=== PATIENT | female | born 1990 | race Caucasian/White ===

== ENCOUNTER 2017-10-28 14:58 | Emergency (ER) | payer MEDICARE, OTHER ==
[~2017-10-28] VITALS: Ht 165.1 cm; Wt 92.1 kg
[~2017-10-28 14:58] MED LIST: ALBU90OI61 INH; ALPR.5; ARIP10 PO; ARIP15 PO; ARIP20 PO; AZIT250 PO; BENZ100A PO; BUPR150T2; BUSP15 PO; CIPRO500 MG PO; CLON.1; CLON.1 PO; CLON.2 PO; CLON1 PO; CLON2 PO; CYCL10 PO; Cipro500 MG PO; Colace100 MG PO; DIVA125EC; ESTNORT PO; HALO5 PO; HYDPAM25; Hair, Skin & N1 EACH PO; IBUP600 PO; IBUP800 PO; LOXA10 PO; NAPR500 PO; OLAN10 PO; OLAN2.5 PO; OLAN20 MM; OLAN20 PO; ONDA4 PO; OXCA150; OXCA150 PO; OXCA300 PO; Oxcarbazepine600 MG PO; PROM25 PO; Percocet 5-3251 EACH PO; QUET100; QUET300 PO; RISP1 PO; SERT100 PO; SERT25; SERT25 PO; SERT50 PO; SULTRISS PO; Trileptal600 MG PO; VICODIN 5-3001 EACH PO; Vibramycin100 MG PO; ZIPR40 PO; Zofran Odt4 MG SL; Zyprexa10 MG PO; [UNRECOGNIZED DRUG - REMARK]; [UNRECOGNIZED DRUG - REMARK]; [UNRECOGNIZED DRUG - REMARK]
[2017-10-28] MEDS ORDERED: Haloperidol10 MG PO (15:28)
[2017-10-28] MEDS ORDERED: OLAN20 MM (15:29)
[2017-10-28 15:49] LABS: BASOPHILS ABSOLUTE AUTO 0.03 K/mm3 (0.00-0.23); BASOPHILS PERCENT AUTO 0 % (0-2); EOSINOPHILS PERCENT AUTO 0 % (0-6); Hematocrit 38.9 % (33.0-51.0); IMMATURE GRAN ABSOLUTE AUTO 0.02 K/mm3 (0.00-0.10); IMMATURE GRAN PERCENT AUTO 0 % (0-1); LYMPHOCYTES ABSOLUTE AUTO 1.15 K/mm3 (0.84-5.20); LYMPHOCYTES PERCENT AUTO 16 % (21-46); MONOCYTES ABSOLUTE AUTO 0.41 K/mm3 (0.16-1.47); MONOCYTES PERCENT AUTO 6 % (4-13); Mean Corpuscular HGB 29.3 pg (26.0-34.0); Mean Corpuscular Volume 81 fL (80-100); Mean Platelet Volume 10.4 fL (9.1-12.4); NEUTROPHILS ABSOLUTE AUTO 5.82 K/mm3 (1.96-9.15); NEUTROPHILS PERCENT AUTO 78 % (41-73); Platelet Count 199 K/mm3 (150-400); RDW Coefficient Variation 11.9 % (11.7-14.2); RDW Standard Deviation 35.1 fL (35.1-46.3); Red Blood Cell Count 4.78 M/mm3 (3.80-5.20); White Blood Cell Count 7.43 K/mm3 (4.00-11.30)
[2017-10-28 16:06] LABS: Alanine Aminotransfer (ALT/SGP 30 U/L (12-78); Albumin, Blood 3.6 g/dL (3.4-5.0); Albumin/Globulin Ratio 0.9 (0.8-1.8); Alk Phos 87 U/L (50-136); Anion Gap 10 mmol/L (6-16); Aspartate Aminotrans (AST/SGOT 23 U/L (12-37); Bilirubin, Total 0.2 mg/dL (0.1-1.0); Blood Urea Nitrogen 7 mg/dL (8-24); Bun/Creatinine Ratio 11.8 (12.0-20.0); CO2, Blood 23 mmol/L (21-32); Calcium, Blood 8.8 mg/dL (8.5-10.1); Chloride, Blood 104 mmol/L (98-108); Creatinine, Blood 0.59 mg/dL (0.40-1.00); Ethanol (Alcohol), Blood, Med <3 mg/dL; Globulin, Blood 3.8 g/dL (2.2-4.0); Glomerular Filtration Rate >60 (60-); Glucose, Blood 106 mg/dL (70-99); Potassium, Blood 3.7 mmol/L (3.5-5.5); Salicylate <1.7 mg/dL (2.8-20.0); Sodium, Blood 137 mmol/L (136-145); Total Protein, Blood 7.4 g/dL (6.4-8.2)
[2017-10-28 16:17] LABS: Acetaminophen, Random <2.0 ug/mL (10.0-30.0)
[2017-10-28 16:28] LABS: Source, Urine Voided
[2017-10-28 16:34] LABS: Appearance, Urine Clear (Clear); Bilirubin, Urine Neg (Neg); Blood, Urine 4+ (Neg); Color, Urine Yellow (P-Yellow); Glucose Qualitative, Urine Neg (Neg); Ketones, Urine Neg (Neg); Leukocyte Esterase, Urine 3+ (Neg); Nitrite, Urine Neg (Neg); Protein, Urine 1+ (Neg); Urobilinogen, Urine NORM (Normal)
[2017-10-28 16:52] LABS: Bacteria Many /hpf; Squamous Epithelial Cells Many /hpf (Few); White Blood Cells, Urine 25-50 /hpf (0-5)
[2017-10-28 17:32] LABS: U Amphetamine Screen Not Detected; U Barbituate Screen Not Detected; U Benzodiazapine Screen Not Detected; U Buprenorphine Screen Not Detected; U Cannabinoids Screen Not Detected; U Cocaine Screen Not Detected; U Methadone Screen Not Detected; U Methamphetamine Screen Not Detected; U Opiates Screen Not Detected; U Oxycodone Screen Not Detected; U Phencyclidine Screen Not Detected; U Propoxyphene Screen Not Detected
== END 2017-10-28 19:57 | disposition home or self-care (01) ==
LOC: ER 14:58
PROVIDERS: Emergency Medicine
DX: F25.9 Schizoaffective disorder, unspecified (principal); Z87.891 Personal history of nicotine dependence; F31.9 Bipolar disorder, unspecified; Z79.899 Other long term (current) drug therapy
CPT/HCPCS: 36415; 80053; 81001; 81025; 84443; 85025; 87086; 99284; G0480

== ENCOUNTER → 2017-11-25 | Outpatient (CLI) | payer MEDICARE, OTHER ==
[~2017-11-25] MED LIST changes: +Haloperidol10 MG PO
[2017-11-26 11:29] LABS: Candida species (DNA Probe) Negative (NEGATIVE); G. vaginalis (DNA Probe) Negative (NEGATIVE); T. vaginalis (DNA Probe) Negative (NEGATIVE)
[2017-11-29 12:29] LABS: HPV Genotype 16 Not Detected (NOTDET); HPV Genotype 18 Not Detected (NOTDET)
[2017-12-02 09:53] LABS: HPV High Risk Other Not Detected (NOTDET)
== END ==
LOC: LAB SHORT 10:00
PROVIDERS: Nurse Practitioner Family
DX: N89.8 Other specified noninflammatory disorders of vagina (principal); N92.6 Irregular menstruation, unspecified; Z72.51 High risk heterosexual behavior; N73.8 Other specified female pelvic inflammatory diseases; Z86.19 Personal history of other infectious and parasitic diseases
CPT/HCPCS: 87177; 87209; 87480; 87491; 87510; 87591; 87624; 87660; G0123

== ENCOUNTER → 2018-07-07 | Outpatient (CLI) | payer MEDICARE, OTHER ==
[2018-07-08 10:11] LABS: Candida species (DNA Probe) Negative (NEGATIVE); G. vaginalis (DNA Probe) Negative (NEGATIVE); T. vaginalis (DNA Probe) Negative (NEGATIVE)
== END ==
LOC: LAB SHORT 12:12 → LAB 12:12
PROVIDERS: Obstetrics & Gynecology
DX: N76.0 Acute vaginitis (principal)
CPT/HCPCS: 87480; 87510; 87660

== ENCOUNTER → 2019-07-18 | Outpatient (CLI) | payer MEDICARE, OTHER ==
[2019-07-18 13:17] LABS: BASOPHILS ABSOLUTE AUTO 0.05 K/mm3 (0.00-0.23); BASOPHILS PERCENT AUTO 1 % (0-2); EOSINOPHILS PERCENT AUTO 0 % (0-6); Hemoglobin 15.7 g/dL (11.5-16.0); IMMATURE GRAN ABSOLUTE AUTO 0.02 K/mm3 (0.00-0.10); IMMATURE GRAN PERCENT AUTO 0 % (0-1); LYMPHOCYTES ABSOLUTE AUTO 2.01 K/mm3 (0.84-5.20); LYMPHOCYTES PERCENT AUTO 30 % (21-46); MONOCYTES ABSOLUTE AUTO 0.49 K/mm3 (0.16-1.47); MONOCYTES PERCENT AUTO 7 % (4-13); Mean Corpuscular HGB 28.8 pg (26.0-34.0); Mean Corpuscular HGB Conc 34.1 g/dL (31.5-36.5); Mean Corpuscular Volume 84 fL (80-100); Mean Platelet Volume 11.2 fL (9.1-12.4); NEUTROPHILS ABSOLUTE AUTO 4.14 K/mm3 (1.96-9.15); NEUTROPHILS PERCENT AUTO 62 % (41-73); Platelet Count 211 K/mm3 (150-400); RDW Coefficient Variation 12.6 % (11.7-14.2); RDW Standard Deviation 38.2 fL (35.1-46.3); Red Blood Cell Count 5.46 M/mm3 (3.80-5.20); White Blood Cell Count 6.71 K/mm3 (4.00-11.30)
[2019-07-18 13:31] LABS: Albumin, Blood 4.2 g/dL (3.4-5.0); Albumin/Globulin Ratio 1.1 (0.8-1.8); Bilirubin, Total 0.3 mg/dL (0.1-1.0); Calcium, Blood 9.7 mg/dL (8.5-10.1); Creatinine, Blood 1.11 mg/dL (0.40-1.00); Potassium, Blood 4.1 mmol/L (3.5-5.5); Thyroid Stimulating Hormone 1.63 uIU/mL (0.360-4.800); Total Protein, Blood 8.2 g/dL (6.4-8.2)
== END | disposition home or self-care (01) ==
LOC: LAB SHORT 13:07 → LAB EV 13:07
PROVIDERS: Physician Assistant Medical
DX: N64.3 Galactorrhea not associated with childbirth (principal); R06.09 Other forms of dyspnea
CPT/HCPCS: 80053; 84146; 84443; 85025

== ENCOUNTER → 2019-08-21 | Outpatient (CLI) | payer MEDICARE, OTHER ==
[2019-08-21 13:43] LABS: BASOPHILS ABSOLUTE AUTO 0.04 K/mm3 (0.00-0.23); BASOPHILS PERCENT AUTO 1 % (0-2); EOSINOPHILS ABSOLUTE AUTO 0.06 K/mm3 (0.00-0.68); EOSINOPHILS PERCENT AUTO 1 % (0-6); Hematocrit 42.6 % (33.0-51.0); Hemoglobin 14.7 g/dL (11.5-16.0); IMMATURE GRAN ABSOLUTE AUTO 0.01 K/mm3 (0.00-0.10); IMMATURE GRAN PERCENT AUTO 0 % (0-1); LYMPHOCYTES PERCENT AUTO 39 % (21-46); MONOCYTES PERCENT AUTO 8 % (4-13); Mean Corpuscular HGB 29.1 pg (26.0-34.0); Mean Corpuscular HGB Conc 34.5 g/dL (31.5-36.5); Mean Corpuscular Volume 84 fL (80-100); Mean Platelet Volume 11.4 fL (9.1-12.4); NEUTROPHILS ABSOLUTE AUTO 2.69 K/mm3 (1.96-9.15); NEUTROPHILS PERCENT AUTO 52 % (41-73); Platelet Count 186 K/mm3 (150-400); RDW Coefficient Variation 12.1 % (11.7-14.2); RDW Standard Deviation 36.6 fL (35.1-46.3); Red Blood Cell Count 5.05 M/mm3 (3.80-5.20)
[2019-08-21 13:49] LABS: Alanine Aminotransfer (ALT/SGP 39 U/L (12-78); Alk Phos 107 U/L (40-126); Anion Gap 10 mmol/L (6-16); Aspartate Aminotrans (AST/SGOT 36 U/L (12-37); Bilirubin, Total 0.2 mg/dL (0.1-1.0); Blood Urea Nitrogen 8 mg/dL (8-24); Bun/Creatinine Ratio 7.6 (12.0-20.0); CO2, Blood 28 mmol/L (21-32); Calcium, Blood 8.9 mg/dL (8.5-10.1); Chloride, Blood 105 mmol/L (98-108); Creatinine, Blood 1.05 mg/dL (0.40-1.00); Globulin, Blood 3.9 g/dL (2.2-4.0); Glomerular Filtration Rate >60 (60-); Glucose, Blood 98 mg/dL (70-99); Potassium, Blood 3.7 mmol/L (3.5-5.5); Sodium, Blood 143 mmol/L (136-145); Total Protein, Blood 7.9 g/dL (6.4-8.2)
[2019-08-21 13:52] LABS: Troponin I <0.017 ng/mL (0.000-0.040)
== END | disposition home or self-care (01) ==
LOC: LAB EV 13:33 → LAB SHORT 13:33
PROVIDERS: Physician Assistant
DX: R07.89 Other chest pain (principal)
CPT/HCPCS: 80053; 84484; 85025

== ENCOUNTER 2019-08-25 17:03 | Emergency (ER) | payer MEDICARE, OTHER ==
[~2019-08-25] VITALS: Ht 167.6 cm; Wt 98.9 kg
[2019-08-25] MEDS ORDERED: DICL75ER PO (19:55)
== END 2019-08-25 20:01 | disposition home or self-care (01) ==
LOC: ER 17:03
DX: M94.0 Chondrocostal junction syndrome [Tietze] (principal); Z88.8 Allergy status to other drugs, medicaments and biological substances; Z79.899 Other long term (current) drug therapy; F31.9 Bipolar disorder, unspecified; F20.9 Schizophrenia, unspecified; Z87.891 Personal history of nicotine dependence
CPT/HCPCS: 71046; 99283-25

== ENCOUNTER → 2020-01-05 | Outpatient (CLI) | payer MEDICARE, OTHER ==
[~2020-01-05] MED LIST changes: +DICL75ER PO
[2020-01-06 09:43] LABS: Candida species (DNA Probe) Negative (NEGATIVE); G. vaginalis (DNA Probe) Positive (NEGATIVE); T. vaginalis (DNA Probe) Negative (NEGATIVE)
== END ==
LOC: LAB 11:00 → LAB SHORT 11:00
PROVIDERS: Obstetrics & Gynecology
DX: R10.2 Pelvic and perineal pain (principal)
CPT/HCPCS: 87480; 87510; 87660

== ENCOUNTER → 2020-07-17 | Outpatient (CLI) | payer MEDICARE, OTHER | LOC: LAB SHORT 18:09 → LAB 18:09 | DX: R30.0 Dysuria (principal) | CPT/HCPCS: 87086 ==

== ENCOUNTER → 2020-11-22 | Outpatient (CLI) | payer MEDICARE, OTHER ==
[2020-11-23 10:09] LABS: Candida species (DNA Probe) Negative (NEGATIVE); G. vaginalis (DNA Probe) Positive (NEGATIVE); T. vaginalis (DNA Probe) Negative (NEGATIVE)
== END | disposition home or self-care (01) ==
LOC: LAB 14:09 → LAB SHORT 14:09
PROVIDERS: Obstetrics & Gynecology
DX: Z01.419 Encounter for gynecological examination (general) (routine) without abnormal findings (principal); N76.0 Acute vaginitis
CPT/HCPCS: 87480; 87510; 87660; G0123

== ENCOUNTER → 2021-02-22 | Outpatient (CLI) | payer OTHER ==
[2021-02-23 09:21] LABS: Candida species (DNA Probe) Negative (NEGATIVE); G. vaginalis (DNA Probe) Negative (NEGATIVE); T. vaginalis (DNA Probe) Negative (NEGATIVE)
== END ==
LOC: LAB SHORT 14:30 → LAB 14:30
PROVIDERS: Nurse Practitioner Family
DX: N89.8 Other specified noninflammatory disorders of vagina (principal); Z88.8 Allergy status to other drugs, medicaments and biological substances
CPT/HCPCS: 87480; 87510; 87660

== ENCOUNTER → 2021-03-22 | Outpatient (CLI) | payer OTHER ==
[2021-03-22 19:30] LABS: Appearance, Urine Hazy (Clear); Bilirubin, Urine Neg (Neg); Blood, Urine Neg (Neg); Color, Urine Yellow (P-Yellow); Glucose Qualitative, Urine Neg (Neg); Ketones, Urine Neg (Neg); Leukocyte Esterase, Urine 1+ (Neg); Nitrite, Urine Neg (Neg); Protein, Urine Neg (Neg); Urobilinogen, Urine NORM (Normal)
[2021-03-22 19:55] LABS: Bacteria Mod /hpf; Red Blood Cells, Urine Not Seen /hpf (0-2); Squamous Epithelial Cells Many /hpf (Few); White Blood Cells, Urine 0-2 /hpf (0-5)
== END | disposition home or self-care (01) ==
LOC: LAB SHORT 18:43 → LAB 18:43
PROVIDERS: Nurse Practitioner Family
DX: R30.0 Dysuria (principal); R10.9 Unspecified abdominal pain
CPT/HCPCS: 81001; 87086

== ENCOUNTER → 2021-08-27 | Outpatient (CLI) | payer OTHER ==
[~2021-08-27] MED LIST changes: +BENZ1 PO; +GABA300 PO; +VRAYLAR3 MG PO
[2021-08-29 03:08] LABS: CHLAMYDIA TRACHOMATIS, NAA Negative (Negative)
== END | disposition home or self-care (01) ==
LOC: LAB SHORT 17:59
PROVIDERS: Physician Assistant Medical
DX: R10.2 Pelvic and perineal pain (principal)
CPT/HCPCS: 87070; 87205; 87491; 87591

== ENCOUNTER 2021-08-31 05:27 | Emergency (ER) | payer OTHER ==
[~2021-08-31] VITALS: Ht 167.6 cm; Wt 81.7 kg
[~2021-08-31 05:27] MED LIST changes: -BENZ1 PO; -GABA300 PO; -VRAYLAR3 MG PO
[2021-08-31] MEDS ORDERED: VRAYLAR3 MG PO (05:43)
[2021-08-31] MEDS ORDERED: GABA300 PO (05:44)
[2021-08-31] MEDS ORDERED: BENZ1 PO (05:46)
== END 2021-08-31 06:57 | disposition home or self-care (01) ==
LOC: ER 05:27
DX: B34.9 Viral infection, unspecified (principal); M79.10 Myalgia, unspecified site; Z20.822 Contact with and (suspected) exposure to COVID-19; Z88.8 Allergy status to other drugs, medicaments and biological substances; Z79.899 Other long term (current) drug therapy
CPT/HCPCS: 96372; 99283-25; A9270; J1885

== ENCOUNTER 2021-09-03 01:08 | Emergency (ER) | payer OTHER ==
[~2021-09-03] VITALS: Ht 167.6 cm; Wt 81.7 kg
[~2021-09-03 01:08] MED LIST changes: +BENZ1 PO; +GABA300 PO; +VRAYLAR3 MG PO
[2021-09-03] MEDS ORDERED: CALCA500S6 (01:37)
== END 2021-09-03 04:39 | disposition home or self-care (01) ==
LOC: ER 01:08
DX: R05.9 Cough, unspecified (principal); G47.00 Insomnia, unspecified; R06.02 Shortness of breath; Z88.8 Allergy status to other drugs, medicaments and biological substances; Z79.899 Other long term (current) drug therapy; Z87.891 Personal history of nicotine dependence
CPT/HCPCS: 99283; A9270

== ENCOUNTER 2021-09-06 00:11 | Emergency (ER) | payer OTHER ==
[~2021-09-06] VITALS: Ht 167.6 cm; Wt 83.9 kg
[~2021-09-06 00:11] MED LIST changes: +CALCA500S6
== END 2021-09-06 00:55 | disposition home or self-care (01) ==
LOC: ER 00:11
DX: L85.3 Xerosis cutis (principal); Z88.8 Allergy status to other drugs, medicaments and biological substances; Z79.899 Other long term (current) drug therapy; Z87.891 Personal history of nicotine dependence
CPT/HCPCS: 99282

== ENCOUNTER → 2021-10-09 | Outpatient (CLI) | payer OTHER ==
[2021-10-09 18:28] LABS: BASOPHILS ABSOLUTE AUTO 0.06 K/mm3 (0.00-0.23); BASOPHILS PERCENT AUTO 1 % (0-2); EOSINOPHILS ABSOLUTE AUTO 0.14 K/mm3 (0.00-0.68); EOSINOPHILS PERCENT AUTO 2 % (0-6); Hematocrit 39.1 % (33.0-51.0); Hemoglobin 13.3 g/dL (11.5-16.0); IMMATURE GRAN PERCENT AUTO 0 % (0-1); LYMPHOCYTES ABSOLUTE AUTO 2.72 K/mm3 (0.84-5.20); LYMPHOCYTES PERCENT AUTO 39 % (21-46); MONOCYTES ABSOLUTE AUTO 0.68 K/mm3 (0.16-1.47); MONOCYTES PERCENT AUTO 10 % (4-13); Mean Corpuscular HGB 29.1 pg (26.0-34.0); Mean Corpuscular Volume 86 fL (80-100); Mean Platelet Volume 10.3 fL (9.1-12.4); NEUTROPHILS ABSOLUTE AUTO 3.35 K/mm3 (1.96-9.15); NEUTROPHILS PERCENT AUTO 48 % (41-73); Platelet Count 232 K/mm3 (150-400); RDW Coefficient Variation 12.1 % (11.7-14.2); RDW Standard Deviation 37.3 fL (35.1-46.3); Red Blood Cell Count 4.57 M/mm3 (3.80-5.20); White Blood Cell Count 6.95 K/mm3 (4.00-11.30)
[2021-10-09 18:45] LABS: Alanine Aminotransfer (ALT/SGP 29 U/L (12-78); Albumin, Blood 3.5 g/dL (3.4-5.0); Albumin/Globulin Ratio 1.1 (0.8-1.8); Alk Phos 71 U/L (40-126); Anion Gap 9 mmol/L (6-16); Aspartate Aminotrans (AST/SGOT 24 U/L (12-37); Bilirubin, Total 0.3 mg/dL (0.1-1.0); Blood Urea Nitrogen 8 mg/dL (8-24); Bun/Creatinine Ratio 7.6 (12.0-20.0); CO2, Blood 28 mmol/L (21-32); Calcium, Blood 8.8 mg/dL (8.5-10.1); Chloride, Blood 107 mmol/L (98-108); Creatinine, Blood 1.05 mg/dL (0.40-1.00); Globulin, Blood 3.3 g/dL (2.2-4.0); Glomerular Filtration Rate >60 (60-); Glucose, Blood 94 mg/dL (70-99); Potassium, Blood 3.8 mmol/L (3.5-5.5); Sodium, Blood 144 mmol/L (136-145); Total Protein, Blood 6.8 g/dL (6.4-8.2)
[2021-10-11 07:09] LABS: CHLAMYDIA BY NAA Negative (Negative); GONOCOCCUS BY NAA Negative (Negative); TRICH VAG BY NAA Negative (Negative)
== END | disposition home or self-care (01) ==
LOC: LAB SHORT 18:03
PROVIDERS: Physician Assistant Medical
DX: N89.8 Other specified noninflammatory disorders of vagina (principal); N93.9 Abnormal uterine and vaginal bleeding, unspecified
CPT/HCPCS: 80053; 85025; 87491; 87591; 87661

== ENCOUNTER → 2022-01-13 | Outpatient (CLI) | payer OTHER ==
[2022-01-13 16:17] LABS: BASOPHILS ABSOLUTE AUTO 0.04 K/mm3 (0.00-0.23); BASOPHILS PERCENT AUTO 1 % (0-2); EOSINOPHILS ABSOLUTE AUTO 0.01 K/mm3 (0.00-0.68); EOSINOPHILS PERCENT AUTO 0 % (0-6); Hematocrit 40.4 % (33.0-51.0); Hemoglobin 13.7 g/dL (11.5-16.0); IMMATURE GRAN ABSOLUTE AUTO 0.01 K/mm3 (0.00-0.10); IMMATURE GRAN PERCENT AUTO 0 % (0-1); LYMPHOCYTES ABSOLUTE AUTO 1.94 K/mm3 (0.84-5.20); LYMPHOCYTES PERCENT AUTO 36 % (21-46); MONOCYTES ABSOLUTE AUTO 0.44 K/mm3 (0.16-1.47); MONOCYTES PERCENT AUTO 8 % (4-13); Mean Corpuscular HGB 28.8 pg (26.0-34.0); Mean Corpuscular HGB Conc 33.9 g/dL (31.5-36.5); Mean Corpuscular Volume 85 fL (80-100); Mean Platelet Volume 10.5 fL (9.1-12.4); NEUTROPHILS PERCENT AUTO 55 % (41-73); Platelet Count 202 K/mm3 (150-400); RDW Coefficient Variation 12.6 % (11.7-14.2); RDW Standard Deviation 38.8 fL (35.1-46.3); Red Blood Cell Count 4.75 M/mm3 (3.80-5.20); White Blood Cell Count 5.44 K/mm3 (4.00-11.30)
== END ==
LOC: LAB SHORT 16:12
PROVIDERS: Physician Assistant
DX: R10.9 Unspecified abdominal pain (principal)
CPT/HCPCS: 85025

== ENCOUNTER → 2022-02-26 | Outpatient (CLI) | payer OTHER ==
[~2022-02-26] MED LIST changes: +VENL37.5 PO; +ZYPREXA PO
[2022-02-26 14:27] LABS: Candida species (DNA Probe) Negative (NEGATIVE); G. vaginalis (DNA Probe) Negative (NEGATIVE); T. vaginalis (DNA Probe) Negative (NEGATIVE)
== END | disposition home or self-care (01) ==
LOC: LAB 10:39 → LAB SHORT 10:39
PROVIDERS: Obstetrics & Gynecology
DX: L29.2 Pruritus vulvae (principal)
CPT/HCPCS: 87480; 87510; 87660

== ENCOUNTER → 2022-08-02 | Outpatient (CLI) | payer OTHER ==
[2022-08-03 13:33] LABS: Candida species (DNA Probe) Negative (NEGATIVE); G. vaginalis (DNA Probe) Negative (NEGATIVE); T. vaginalis (DNA Probe) Negative (NEGATIVE)
== END | disposition home or self-care (01) ==
LOC: LAB SHORT 12:54 → LAB 12:54
PROVIDERS: Advanced Practice Midwife
DX: N76.0 Acute vaginitis (principal)
CPT/HCPCS: 87480; 87510; 87660

== ENCOUNTER → 2022-12-02 | Outpatient (CLI) | payer OTHER ==
[2022-12-02 14:51] LABS: Candida species (DNA Probe) Negative (NEGATIVE); G. vaginalis (DNA Probe) Negative (NEGATIVE); T. vaginalis (DNA Probe) Negative (NEGATIVE)
== END | disposition home or self-care (01) ==
LOC: LAB 11:37 → LAB SHORT 11:37
PROVIDERS: Obstetrics & Gynecology
DX: N89.8 Other specified noninflammatory disorders of vagina (principal)
CPT/HCPCS: 87480; 87510; 87660

== ENCOUNTER → 2023-01-03 | Outpatient (CLI) | payer OTHER ==
[2023-01-04 13:16] LABS: Candida species (DNA Probe) Negative (NEGATIVE); G. vaginalis (DNA Probe) Negative (NEGATIVE); T. vaginalis (DNA Probe) Negative (NEGATIVE)
== END | disposition home or self-care (01) ==
LOC: LAB 13:28 → LAB SHORT 13:28
PROVIDERS: Advanced Practice Midwife
DX: N76.0 Acute vaginitis (principal)
CPT/HCPCS: 87480; 87510; 87660

== ENCOUNTER → 2024-05-10 | Outpatient (CLI) | payer OTHER | END | disposition home or self-care (01) | LOC: LAB SHORT 10:00 → LAB 10:00 | DX: J06.9 Acute upper respiratory infection, unspecified (principal) | CPT/HCPCS: 87081 ==

== ENCOUNTER → 2024-06-23 | Outpatient (CLI) | payer OTHER ==
[2024-06-23 15:16] LABS: Source, Urine Clean Catch
[2024-06-23 17:12] LABS: Appearance, Urine Hazy (Clear); Bilirubin, Urine Neg (Neg); Blood, Urine 1+ (Neg); Color, Urine Yellow (P-Yellow); Glucose Qualitative, Urine Neg (Neg); Ketones, Urine Neg (Neg); Leukocyte Esterase, Urine 2+ (Neg); Nitrite, Urine Neg (Neg); Protein, Urine 1+ (Neg); Specific Gravity, Urine 1.015 (1.003-1.022); Urobilinogen, Urine NORM (Normal)
[2024-06-23 17:31] LABS: Bacteria Mod /hpf; Red Blood Cells, Urine 0-2 /hpf (0-2); Squamous Epithelial Cells Few /hpf (Few); White Blood Cells, Urine 0-2 /hpf (0-5)
[2024-06-23 20:43] LABS: Bacterial Vaginosis PCR Negative (NEGATIVE); Candida Group, PCR NOT DETECTED (NOT DETECT); Candida glabrata-krusei, PCR NOT DETECTED (NOT DETECT)
== END | disposition home or self-care (01) ==
LOC: LAB SHORT 15:13 → LAB 15:13
PROVIDERS: Obstetrics & Gynecology
DX: N76.0 Acute vaginitis (principal); R10.2 Pelvic and perineal pain
CPT/HCPCS: 81001; 87086; 87481; 87661; 87801